=== PATIENT | female | born 1960 | race Caucasian/White ===

== ENCOUNTER 2018-03-27 11:13 | Inpatient (IN) | payer OTHER ==
[~2018-03-27] VITALS: Ht 154.9 cm; Wt 49.5 kg
[2018-03-27] MEDS ORDERED: ANTIDEPRESSANT PO (11:24)
[2018-03-27 12:56] LABS: BASOPHILS % (AUTO) 0.4 % (0.0-2.0); EOSINOPHILS % (AUTO) 1.9 % (1.0-6.0); HEMATOCRIT 28.4 % (36-46); HEMOGLOBIN 9.6 g/dL (12.0-16.0); LYMPHOCYTES # (AUTO) 0.9 K/uL (1.0-4.8); LYMPHOCYTES % (AUTO) 9.9 % (22.0-44.0); MEAN CORPUSCULAR HEMOGLOBIN 24.3 pg (26.0-34.0); MEAN CORPUSCULAR HGB CONC 33.9 G/dL (31.0-37.0); MEAN CORPUSCULAR VOLUME 72 fL (80-100); MONOCYTES # (AUTO) 0.7 K/uL (0.1-1.0); MONOCYTES % (AUTO) 6.9 % (2.0-9.0); NEUTROPHILS # (AUTO) 7.7 K/uL (1.8-7.7); NEUTROPHILS % (AUTO) 80.9 % (40.0-70.0); PLATELET COUNT (AUTO) 426 K/uL (150-450); RED BLOOD CELL COUNT(AUTO) 3.95 MIL/uL (4.00-5.20); RED CELL DISTRIBUTION WIDTH 16.2 % (11.5-14.5)
[2018-03-27 13:04] LABS: ANION GAP 5 mmol/L (8-16); CARBON DIOXIDE 28 mmol/L (22-29); CHLORIDE 94 mmol/L (98-107); CREATININE 0.94 mg/dL (0.60-1.30); GLOMERULAR FILTR. RATE CALC > 60 mL/min (>60); GLUCOSE,RANDOM 100 mg/dL (70-110); POTASSIUM 3.3 mmol/L (3.5-5.1); SODIUM SERUM 127 mmol/L (136-145); UREA NITROGEN, BLOOD 12 mg/dL (7-18)
[2018-03-27 13:07] LABS: PROTHROMBIN TIME 10.2 SEC (9.4-11.6)
[2018-03-27 13:10] LABS: ALANINE AMINOTRANSFERASE 14 U/L (12-78); ALBUMIN 2.9 g/dL (3.4-5.0); ALKALINE PHOSPHATASE 118 U/L (46-116); ASPARTATE AMINOTRANSFERASE 16 U/L (15-37); BILIRUBIN,TOTAL 0.2 mg/dL (0.1-1.0); TOTAL PROTEIN, SERUM 6.6 g/dL (6.4-8.2)
[2018-03-27 13:48] LABS: APPEARANCE,URINE CLOUDY (CLEAR); BILIRUBIN,URINE NEGATIVE (NEGATIVE); GLUCOSE, URINE (UA) NEGATIVE (NEGATIVE); KETONES,URINE NEGATIVE (NEGATIVE); LEUKOCYTE ESTERASE ,URINE MODERATE (NEGATIVE); NITRATE,URINE NEGATIVE (NEGATIVE); OCCULT BLOOD,URINE SMALL (NEGATIVE); PROTEIN,URINE TRACE (NEGATIVE); UROBILINOGEN,URINE 0.2 mg/dL (<=1.0)
[2018-03-27 13:57] LABS: AMPHET/METH SCREEN,URINE NEGATIVE (NEGATIVE); BARBITURATE SCREEN, URINE NEGATIVE (NEGATIVE); BENZODIAZEPINES SCREEN,URINE NEGATIVE (NEGATIVE); CANNABINOID SCREEN,URINE NEGATIVE (NEGATIVE); COCAINE SCREEN,URINE NEGATIVE (NEGATIVE); METHADONE SCREEN, URINE NEGATIVE (NEGATIVE); OPIATE SCREEN,URINE NEGATIVE (NEGATIVE)
[2018-03-27 13:58] LABS: PHENCYCLIDINE SCREEN,URINE NEGATIVE (NEGATIVE)
[2018-03-27 14:06] LABS: WBC,URINE 26-50 /HPF (0-5)
[2018-03-27 14:07] LABS: BACTERIA,URINE Moderate /HPF (None Seen); SQUAMOUS EPITHELIAL CELL,UR Rare /LPF (None Seen)
[2018-03-27] MEDS ORDERED: IOVERSOL 320 MG/ML 100 ML VIAL ONE (14:08)
[2018-03-27] MEDS ORDERED: SODIUM CHLORIDE 0.9% 1,000 ML IV ONE (17:00)
[2018-03-27] MEDS ORDERED: CefTRIAXone SODIUM 1 GM in DEXTROSE 5%-WATER 10 ML IV ONE (17:00)
[2018-03-27] MEDS ORDERED: POTASSIUM CHLORIDE 20 MEQ ER TABLET PO ONE (21:15)
[2018-03-27 21:30] VITALS: BP 156/85
[2018-03-27] MEDS ORDERED: 0.9% SODIUM CHLORIDE 10 ML SYRINGE IVP PRN (23:30)
[2018-03-27] MEDS ORDERED: ONDANSETRON HCL 4 MG/2 ML VIAL IVP PRN (23:30)
[2018-03-27] MEDS ORDERED: OxyCODONE HCL/ACETAMINOPHEN 5-325 MG TABLET PO PRN (23:30)
[2018-03-27] MEDS: DOCUSATE SODIUM 100 MG CAPSULE PO SCH (23:43)
[2018-03-28] VITALS (7 sets, daily range): BP systolic 124–155; BP diastolic 64–87
[2018-03-28] MEDS: DOCUSATE SODIUM 100 MG CAPSULE PO SCH ×2 (08:22→19:57)
[2018-03-28] MEDS: PANTOPRAZOLE SODIUM 40 MG DR TABLET PO SCH (08:22)
[2018-03-28 09:00] LABS: BASOPHILS % (AUTO) 0.5 % (0.0-2.0); EOSINOPHILS % (AUTO) 2.3 % (1.0-6.0); HEMATOCRIT 30.5 % (36-46); HEMOGLOBIN 10.3 g/dL (12.0-16.0); LYMPHOCYTES # (AUTO) 1.3 K/uL (1.0-4.8); MEAN CORPUSCULAR HEMOGLOBIN 24.4 pg (26.0-34.0); MEAN CORPUSCULAR HGB CONC 33.8 G/dL (31.0-37.0); MEAN CORPUSCULAR VOLUME 72 fL (80-100); MONOCYTES # (AUTO) 0.6 K/uL (0.1-1.0); MONOCYTES % (AUTO) 6.8 % (2.0-9.0); NEUTROPHILS % (AUTO) 76.4 % (40.0-70.0); PLATELET COUNT (AUTO) 439 K/uL (150-450); RED BLOOD CELL COUNT(AUTO) 4.23 MIL/uL (4.00-5.20); RED CELL DISTRIBUTION WIDTH 16.3 % (11.5-14.5)
[2018-03-28] MEDS: OxyCODONE HCL/ACETAMINOPHEN 5-325 MG TABLET PO PRN (09:03)
[2018-03-28 09:10] LABS: CREATININE 0.96 mg/dL (0.60-1.30)
[2018-03-28] MEDS: PARoxetine HCL 10 MG TABLET PO SCH (10:17)
[2018-03-28] MEDS: RisperiDONE 1 MG TABLET PO SCH (19:57)
[2018-03-29 05:00] VITALS: BP 140/78
[2018-03-29 08:03] VITALS: BP 132/61
[2018-03-29] MEDS: PARoxetine HCL 10 MG TABLET PO SCH (08:09)
[2018-03-29] MEDS: PANTOPRAZOLE SODIUM 40 MG DR TABLET PO SCH (08:09)
[2018-03-29] MEDS: DOCUSATE SODIUM 100 MG CAPSULE PO SCH ×2 (08:09→20:30)
[2018-03-29] MEDS: OxyCODONE HCL/ACETAMINOPHEN 5-325 MG TABLET PO PRN (09:48)
[2018-03-29 11:06] VITALS: BP 146/79
[2018-03-29 15:00] VITALS: BP 136/71
[2018-03-29 19:00] VITALS: BP 123/73
[2018-03-29] MEDS: RisperiDONE 1 MG TABLET PO SCH (20:30)
[2018-03-29 23:39] VITALS: BP 124/78
[2018-03-30 04:21] VITALS: BP 146/69
[2018-03-30 08:00] VITALS: BP 129/60
[2018-03-30] MEDS: PANTOPRAZOLE SODIUM 40 MG DR TABLET PO SCH (08:14)
[2018-03-30] MEDS: DOCUSATE SODIUM 100 MG CAPSULE PO SCH ×2 (08:14→20:48)
[2018-03-30] MEDS: PARoxetine HCL 10 MG TABLET PO SCH (08:14)
[2018-03-30 11:10] VITALS: BP 142/73
[2018-03-30 16:34] VITALS: BP 150/79
[2018-03-30 20:22] VITALS: BP 142/70
[2018-03-30] MEDS: RisperiDONE 1 MG TABLET PO SCH (20:48)
[2018-03-30 23:22] VITALS: BP 144/74
[2018-03-31 05:14] VITALS: BP 148/72
[2018-03-31 07:24] VITALS: BP 131/74
[2018-03-31] MEDS: PANTOPRAZOLE SODIUM 40 MG DR TABLET PO SCH (08:03)
[2018-03-31] MEDS: DOCUSATE SODIUM 100 MG CAPSULE PO SCH (08:03)
[2018-03-31] MEDS: PARoxetine HCL 10 MG TABLET PO SCH (08:03)
[2018-03-31] MEDS: OxyCODONE HCL/ACETAMINOPHEN 5-325 MG TABLET PO PRN (08:05)
[2018-03-31 11:09] VITALS: BP 150/78
[2018-03-31] MEDS ORDERED: PARO10TA89 PO (13:30)
[2018-03-31] MEDS ORDERED: RISP1 PO (13:31)
[2018-03-31 15:14] VITALS: BP 136/69
== END 2018-03-31 18:25 | disposition home or self-care (01) | DRG 530 ==
LOC: EMS 11:13 → 6N 20:00
PROVIDERS: ADMIT Internal Medicine; ATTEND Internal Medicine
DX: C79.82 Secondary malignant neoplasm of genital organs (principal); E87.8 Other disorders of electrolyte and fluid balance, not elsewhere classified; E87.1 Hypo-osmolality and hyponatremia; N13.30 Unspecified hydronephrosis; F17.200 Nicotine dependence, unspecified, uncomplicated; D50.9 Iron deficiency anemia, unspecified; N39.0 Urinary tract infection, site not specified; F32.9 Major depressive disorder, single episode, unspecified; E87.6 Hypokalemia; H54.8 Legal blindness, as defined in USA; M43.16 Spondylolisthesis, lumbar region; F25.9 Schizoaffective disorder, unspecified; D13.6 Benign neoplasm of pancreas; Z73.6 Limitation of activities due to disability
CPT/HCPCS: 74177; 87086; 99285; G0480; J0696; J7060